=== PATIENT | male | born 1985 | race Caucasian/White ===

== ENCOUNTER 2020-01-03 21:18 | Emergency (ER) | payer OTHER ==
[~2020-01-03] VITALS: Ht 167.6 cm; Wt 83.9 kg
[2020-01-03 22:11] VITALS: BP 151/74
--- NOTE | 2020-01-03 22:11 | NUR ---
PT IN ER LOBBY WAITING
--- NOTE | 2020-01-03 22:19 | NUR ---
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
--- NOTE | 2020-01-03 23:18 | NUR ---
PT AMBULATED TO BED 4 WITH STEADY GAIT
[2020-01-04] MEDS ORDERED: BACITRACIN OINT 500 UNITS/GM PKT TP ONE (00:42)
[2020-01-04 00:50] VITALS: BP 151/74
== END 2020-01-04 00:50 | disposition home or self-care (01) ==
LOC: MED 21:18
DX: S61.012A Laceration without foreign body of left thumb without damage to nail, initial encounter (principal); X58.XXXA Exposure to other specified factors, initial encounter; Y93.89 Activity, other specified; Y92.89 Other specified places as the place of occurrence of the external cause; Y99.8 Other external cause status
CPT/HCPCS: 12001; 99283

== ENCOUNTER 2020-01-08 15:01 | Emergency (ER) | payer OTHER ==
[~2020-01-08] VITALS: Ht 167.6 cm; Wt 87.1 kg
[2020-01-08 15:55] VITALS: BP 123/75
--- NOTE | 2020-01-08 15:59 | NUR ---
WAIT AT LOBBY.
--- NOTE | 2020-01-08 16:04 | NUR ---
Patient ambulated to chair A. RN evaluating patient.
--- NOTE | 2020-01-08 16:20 | NUR ---
34/M presents to ED with c/o wound check and left thumb repair. Denies fever or chills.
[2020-01-08 16:32] VITALS: BP 123/75
--- NOTE | 2020-01-08 16:32 | NUR ---
Patient discharged with v/s stable. Written and verbal after care instructions given and explained. Patient verbalized understanding. Ambulatory with steady gait. All questions addressed prior to discharge. Advised to follow up with PMD.
== END 2020-01-08 16:32 | disposition home or self-care (01) ==
LOC: MED 15:01
DX: S61.012D Laceration without foreign body of left thumb without damage to nail, subsequent encounter (principal); X58.XXXD Exposure to other specified factors, subsequent encounter; Z48.00 Encounter for change or removal of nonsurgical wound dressing
CPT/HCPCS: 99281

== ENCOUNTER 2020-01-11 14:39 | Emergency (ER) | payer OTHER ==
[~2020-01-11] VITALS: Ht 167.6 cm; Wt 83.5 kg
[2020-01-11 14:51] VITALS: BP 148/85
--- NOTE | 2020-01-11 15:39 | NUR ---
PT SEEN AND D/C BY JADYN ABBOTT. NO NURSING CARE GIVEN.
[2020-01-11 15:40] VITALS: BP 148/85
== END 2020-01-11 15:39 | disposition home or self-care (01) ==
LOC: MED 14:39
DX: S61.012D Laceration without foreign body of left thumb without damage to nail, subsequent encounter (principal); F17.210 Nicotine dependence, cigarettes, uncomplicated; Z48.02 Encounter for removal of sutures; X58.XXXD Exposure to other specified factors, subsequent encounter
CPT/HCPCS: 99281